=== PATIENT | male | born 1955 | race African-American/Black ===

== ENCOUNTER 2018-01-06 17:55 | Emergency (ER) | payer SELFPAY ==
[~2018-01-06 17:55] MED LIST: METHO500 PO; NAPR500 PO; PERC5TAB12 PO; SERO150T PO
== END 2018-01-06 18:31 | disposition left against medical advice (07) ==
LOC: NED 17:55
DX: S61.219A Laceration without foreign body of unspecified finger without damage to nail, initial encounter (principal); X58.XXXA Exposure to other specified factors, initial encounter
CPT/HCPCS: 99281